=== PATIENT | female | born 1970 | race Caucasian/White ===

== ENCOUNTER 2017-03-07 18:30 | Emergency (ER) | payer BC ==
[~2017-03-07] VITALS: Ht 162.6 cm; Wt 85.1 kg
[2017-03-07 18:33] VITALS: Ht 162.6 cm; Wt 85.1 kg
[2017-03-07] MEDS ORDERED: DiphenhydrAMINE HCL 50 MG/ML VIAL IV STA (18:47)
[2017-03-07] MEDS ORDERED: SYN175 PO (19:05)
[2017-03-07] MEDS ORDERED: SYN88 PO (19:05)
[2017-03-07 19:14] LABS: BASO % 0.4 %; BASO ABS # 0.03 K/uL (0-0.2); COMPLETE YES; EOS % 5.3 %; HEMATOCRIT 37.4 % (37-47); IG% 0.1 %; LYMPH % 30.5 %; LYMPH ABS # 2.09 K/uL (1.2-3.4); MEAN CORPUSCULAR HEMOGLOBIN 29.8 pg (25-34); MEAN CORPUSCULAR HGB CONC 34.2 g/dl (32-36); MEAN PLATELET VOLUME 9.9 fL (7.4-10.4); MONO % 6.3 %; NEUT % 57.4 %; PLATELET COUNT 263 K/uL (130-400); WHITE BLOOD COUNT 6.85 K/uL (4.8-10.8)
[2017-03-07 19:41] LABS: BUN/CREATININE RATIO 10.3 (10-20); CALCIUM 8.2 mg/dl (8.5-10.1); CREATININE 1.1 mg/dl (0.60-1.20); POTASSIUM 3.4 mmol/L (3.5-5.1)
[2017-03-07 20:31] VITALS: BP 160/94; PULSE 112; TEMP 36.7; O2SAT 97
--- NOTE | 2017-03-08 00:32 | EMERGENCY ROOM VISIT NOTE ---
History Report prepared by Kelsieibdominga: Danial bobo Under the Supervision of: Dr. Avel Guadarrama D.O. First contact with patient: 18:37 Chief Complaint: ALLERGIC REACTION Stated Complaint: LEGS SWOLLEN TO CLARIN,TONGUE FELT BY,SHAKY History of Present Illness The patient is a 46 year old female who presents to the Emergency Room with complaints of bilateral edema to her lower extremities starting at 230 today. The patient states that she was outside with her family and rolling around in the grass earlier today when she felt swelling to both of her legs. She reports that she took Claritin to relieve her symptoms and admits that it helped bring down the swelling. The patient states that later that day she went to watch a dance recital when she felt a "weird" feeling in her tongue and had a bad taste in her mouth. She reports that she had also slowed her speech but admits that it has returned to normal. The patient states that she had 2 eggs with hashbrowns and turkey this morning, which is not different from normal. The patient states that she has a history of thyroidectomy and thyroid cancer 9 years ago. The patient admits that she has gotten sunburn starting a week ago. The patient denies any pain and itchiness to extremities, change in eating habits or activity, headache, change in vision, fevers, chest pain, shortness of breath, nausea, vomiting, rash diarrhea, pain with urination, and melena. Source of History: patient Onset: since 230 today Position: leg (bilateral) Quality: other (swelling) Timing: resolved Modifying Factors (Relieving): other (Claritin) Note: The patient admits to a weird feeling in her tongue, a bad taste in her mouth, and slowed speech. Review of Systems See HPI for pertinent positives & negatives. A total of 10 systems reviewed and were otherwise negative. Past Medical & Surgical Medical Problems: (1) Thyroid cancer Surgical Problems: (1) History of thyroidectomy Social History Smoking Status: Never Smoker Alcohol Use: none Drug Use: none Marital Status: Housing Status: lives with significant other Occupation Status: employed Current/Historical Medications Scheduled Levothyroxine Sodium (Synthroid), 175 MCG PO [id number] Levothyroxine Sodium (Synthroid), 88 MCG PO WK Allergies Coded Allergies: Shellfish (Unverified Allergy, Severe, NAUSEA, VOMITING, DIARHHEA, 03/07/17 ) Shellfish Allergy (Unverified Allergy, Severe, NAUSEA, VOMITING, DIARHHEA , 03/07/17) Cyclobenzaprine (Unverified Allergy, Intermediate, HIVES, 03/07/17) Physical Exam Vital Signs Date Time Temp Pulse Resp B/P (MAP) Pulse Ox O2 Delivery O2 Flow Rate FiO2 03/07/17 20:31 36.7 112 20 160/94 97 03/07/17 18:40 Room Air 03/07/17 18:33 36.7 112 20 160/94 97 Room Air Physical Exam GENERAL: sitting up in bed. alert, well appearing, well nourished, no distress, non-toxic EYE EXAM: normal conjunctiva, PERRL and EOM's grossly intact OROPHARYNX: no exudate, no erythema, lips, buccal mucosa, and tongue normal and mucous membranes are moist NECK: supple, no nuchal rigidity, no adenopathy, non-tender LUNGS: Clear to auscultation. Normal chest wall mechanics HEART: no murmurs, S1 normal and S2 normal tachycardic ABDOMEN: abdomen soft, non-tender, normo-active bowel sounds, no masses, no rebound or guarding. BACK: Back is symmetrical on inspection and there is no deformity, no midline tenderness, no CVA tenderness. SKIN: no rashes and bruising. UPPER EXTREMITIES: upper extremities are grossly normal. LOWER EXTREMITIES: Mild pitting edema bilaterally. calves equal and normal bilateral NEURO EXAM: Normal sensorium, cranial nerves II-XII grossly intact, normal speech, no gross weakness of arms, no gross weakness of legs. Medical Decision & Procedures Laboratory Results 03/07/17 19:00 Red Blood Count 4.30, Mean Corpuscular Volume 87.0, Mean Corpuscular Hemoglobin 29.8, Mean Corpuscular Hemoglobin Concent 34.2, Mean Platelet Volume 9.9, Neutrophils (%) (Auto) 57.4, Lymphocytes (%) (Auto) 30.5, Monocytes (%) (Auto) 6.3, Eosinophils (%) (Auto) 5.3, Basophils (%) (Auto) 0.4, Neutrophils # (Auto) 3.93, Lymphocytes # (Auto) 2.09, Monocytes # (Auto) 0.43, Eosinophils # (Auto) 0.36, Basophils # (Auto) 0.03 03/07/17 19:00 Test 6/10/17 19:00 White Blood Count 6.85 K/uL (4.8-10.8) Red Blood Count 4.30 M/uL (4.2-5.4) Hemoglobin 12.8 g/dL (12.0-16.0) Hematocrit 37.4 % (37-47) Mean Corpuscular Volume 87.0 fL (80-100) Mean Corpuscular Hemoglobin 29.8 pg (25-34) Mean Corpuscular Hemoglobin Concent 34.2 g/dl (32-36) Platelet Count 263 K/uL (130-400) Mean Platelet Volume 9.9 fL (7.4-10.4) Neutrophils (%) (Auto) 57.4 % Lymphocytes (%) (Auto) 30.5 % Monocytes (%) (Auto) 6.3 % Eosinophils (%) (Auto) 5.3 % Basophils (%) (Auto) 0.4 % Neutrophils # (Auto) 3.93 K/uL (1.4-6.5) Lymphocytes # (Auto) 2.09 K/uL (1.2-3.4) Monocytes # (Auto) 0.43 K/uL (0.11-0.59) Eosinophils # (Auto) 0.36 K/uL (0-0.5) Basophils # (Auto) 0.03 K/uL (0-0.2) RDW Standard Deviation 39.6 fL (36.4-46.3) RDW Coefficient of Variation 12.5 % (11.5-14.5) Immature Granulocyte % (Auto) 0.1 % Immature Granulocyte # (Auto) 0.01 K/uL (0.00-0.02) D-Dimer 250 ug/L FEU (0-500) Anion Gap 8.0 mmol/L (3-11) Est Creatinine Clear Calc Drug Dose 66.0 ml/min Estimated GFR () 68.8 Estimated GFR (Non- 59.3 BUN/Creatinine Ratio 10.3 (10-20) Calcium Level 8.2 mg/dl (8.5-10.1) Laboratory results per my review. Medications Administered Medications (Trade) Dose Ordered Sig/Deb Route Start Time Stop Time Status Last Admin Dose Admin Diphenhydramine HCl (Benadryl Inj) 50 mg NOW STAT IV 03/07/17 18:47 03/07/17 18:48 DC 03/07/17 19:06 50 MG ECG Indication: other (\\) Rate (beats per minute): 87 Rhythm: sinus rhythm Findings: no ectopy, other (normal axis) ED Course ED COURSE: Vital signs were reviewed and showed tachycardia. The patients medical record was reviewed The above diagnostic studies were performed and reviewed. ED treatments and interventions as stated above. 1835: The patient was evaluated in room C10. A complete history and physical examination was performed. 1847: Benadryl Injection 50 mg IV. 2030: Upon reevaluation, the patient is doing better.I discussed my findings with the patient and she understands and agrees with the treatment plan and is going home. Medical Decision The differential diagnosis includes: Etiologies such as allergic reaction, anaphylaxis, urticaria, Flowers-Patrick syndrome, toxic epidermal necrolysis, erythema multiforme, cellulitis, as well as others were entertained. Patient is a 38-year-old female who presents the ER for swelling in her lower extremities associated with a weird feeling in her tongue. She took Claritin and her symptoms improved with exception of the weird feeling in her tongue. She was out playing with her nephew just prior to this occurring. In the ER she eventually discovered a bite tori on her left foot. She was given 50 mg of Benadryl with complete resolution of all of her symptoms. EKG along with CBC and d-dimer were negative. Patient felt as though she was back to baseline. She was discharged with an allergic reaction likely secondary to a bite. She has no shortness of breath, trouble swallowing or chest pain. Discussed with Pt concerning signs and symptoms to watch out for. Pt was instructed to follow up with their PCP and discussed with the patient their option to return to the ED at anytime for persistent or worsening symptoms. The appropriate anticipatory guidance and out-patient management, including indications for return to the emergency department, were explained at length to the patient and understood. Impression Primary Impression: Allergic reaction Scribe Attestation The scribe's documentation has been prepared under my direction and personally reviewed by me in its entirety. I confirm that the note above accurately reflects all work, treatment, procedures, and medical decision making performed by me. Departure Information Dispostion Home / Self-Care Referrals No Doctor, Assigned (PCP) Forms HOME CARE DOCUMENTATION FORM, IMPORTANT VISIT INFORMATION Patient Instructions ED Allergic Reaction Drug [facility] Additional Instructions Please follow up with your primary care doctor with in the next 24 hours. Any worsening of your symptoms, please return to the ED immediately. This includes shortness of breath, tongue numbness, recurrence of swelling of her feet, trouble breathing, swelling of your throat, or any other concerning signs or symptoms from your standpoint. Problem Qualifiers Primary Impression: Allergic reaction Encounter type: initial encounter Qualified Codes: T78.40XA - Allergy, unspecified, initial encounter
== END 2017-03-07 20:32 | disposition home or self-care (01) ==
LOC: C.EDB 18:31 → C.EDC 20:32
DX: T78.40XA Allergy, unspecified, initial encounter (principal); X58.XXXA Exposure to other specified factors, initial encounter; E89.0 Postprocedural hypothyroidism; Z85.850 Personal history of malignant neoplasm of thyroid